=== PATIENT | male | born 1955 | race Hispanic/Latino ===

== ENCOUNTER 2018-09-21 07:42 | Day surgery (SDC) | payer OTHER ==
[~2018-09-21] VITALS: Ht 167.6 cm; Wt 83.5 kg
[~2018-09-21 07:42] MED LIST: AMIT10TA PO; LIDOCAINE 1% MDV 20ML VIAL SQ PRN; LR 1,000 ML IV ONE
[2018-09-21] MEDS ORDERED: KETOROLAC 60 MG/2 ML VIAL (J1885) As Ordered ONE (08:07)
[2018-09-21] MEDS ORDERED: dexameTHASONE 4 MG/ML 1ML VIAL (J1100) As Ordered ONE ×2 (08:07→09:26)
[2018-09-21] MEDS ORDERED: LIDOCAINE 2% INJ 100 MG/5 ML SDV (FOR ANES.) As Ordered ONE (08:07)
[2018-09-21] MEDS ORDERED: PROPOFOL 200 MG/20 ML VIAL As Ordered ONE ×2 (08:07→11:40)
[2018-09-21] MEDS ORDERED: ONDANSETRON 4MG/2ML VIAL (J2405) As Ordered ONE (08:07)
[2018-09-21] MEDS ORDERED: fentaNYL 100 MCG/2 ML INJECTION (J3010) As Ordered ONE (08:08)
[2018-09-21] MEDS ORDERED: MIDAZOLAM INJ 2 MG/2 ML VIAL (J2250) As Ordered ONE (08:09)
[2018-09-21] MEDS ORDERED: LIDOCAINE PRES-FREE 2% 10ML AMP As Ordered ONE (09:25)
[2018-09-21] MEDS ORDERED: BUPIVACAINE HCL 0.5% 30 ML VIAL As Ordered ONE (09:26)
[2018-09-21] MEDS ORDERED: NEOSPORIN GU IRRIG 20 ML VIAL As Ordered ONE (09:26)
[2018-09-21] MEDS ORDERED: BACITRACIN PWD 50,000 UNITS VIAL As Ordered ONE (09:26)
[2018-09-21] MEDS ORDERED: KETAMINE HCL 200 MG/20 ML VIAL As Ordered ONE (10:39)
[2018-09-21] MEDS ORDERED: ePHEDrine SULFATE 25 MG/5 ML(5MG/ML) SYRINGE As Ordered ONE (11:14)
--- NOTE | 2018-09-21 12:55 | REP ---
Clinical: Baseline postoperative assessment. Technique: AP, lateral, oblique views of the left foot. Findings: Surgical hardware and postoperative changes involve the first and fifth metatarsal bones as well as stabilizing wires noted through the second through fourth phalanges. Impression: Postoperative findings. Electronically Signed by Eugene Sadler MD 09/21/2018 12:47 P
[2018-09-21 13:15] VITALS: BP 182/93
--- NOTE | 2018-09-22 07:27 | RO ---
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 Tailor's bunion deformity, left foot. Hammertoe deformity digits 2, 3, 4, and 5, left foot. 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 Tailor's bunion deformity, left foot. Hammertoe deformity digits 2, 3, 4, and 5, left foot. PROCEDURE: SURGEON: Dylon Whipple DPM MOLDING CUTTER: None. ANESTHESIA: Local, monitored anesthesia care (MAC). HARDWARE UTILIZED: Arthrex 3.0 x 22 and a 2.4 x 14, and a 2.4 x 10, and three 0.045 Ness wires. HEMOSTASIS: Ankle pneumatic tourniquet at 225 mmHg for 108 minutes. IRRIGATION: Dilute bacitracin, neomycin, and polymyxin B solution. DESCRIPTION OF PROCEDURE: Description of operation: On 09/21/2018, this 63-year-old male was taken from his hospital room to the operating room and placed on the operating table in supine position. Following induction of intravenous (IV) sedation, local and regional anesthesia, the left lower extremity was prepped and draped in the usual aseptic manner. Attention was directed to the patient's 1st metatarsophalangeal joint, where there was noted to be a hallux valgus deformity, and the following procedure was performed: ADONAY BUNIONECTOMY, INTERNAL SCREW FIXATION, LEFT FOOT: Attention was directed to patient's left foot. There was noted to be a moderately severe hallux valgus deformity. At this time, a 6 cm incision was placed over the 1st metatarsophalangeal joint. The incision was deepened through subcutaneous tissues, and all coursing venous tributaries were identified, underscored, clamped, cut, ligated, and electrocoagulated as necessary. Linear capsulotomy was performed in the same plane as the original skin incision. The capsule and periosteal structures were then dissected free in one continuous layer dorsally, medially, and laterally, thus creating a capsule and periosteal type envelope. This delivered into view the hypertrophied medial eminence of eh 1st metatarsal, which was osteotomized from distal to proximal through and through. Attention was then directed into the 1st intermetatarsal space, where there was noted to be a considerable lateral position of the sesamoid. Dissection was carried down through the conjoin tendon, and the fibular sesamoid was freed from the surrounding soft tissue attachments and removed. The wound was flushed with copious amounts of dilute bacitracin, neomycin, and polymyxin B solution. Attention was directed to the medial surface of the 1st metatarsal, where a V-shaped osteotomy was performed with a long plantar and short dorsal wing. Upon creation of this osteotomy, the capital fragment was transposed 45% of the width of the shaft of the 1st metatarsal and fixated with a 3.0 x 22 mm headless compression screw. The osteotomy was noted to be stable in all three cardinal planes. The redundant cortical spike was osteotomized from dorsal to plantar through and through. Attention was directed towards closure. The capsular structures were coapted and maintained utilizing #2-0 Monocryl in a simple interrupted-type fashion. Subcutaneous tissues were coapted and maintained utilizing #4-0 Monocryl in a simple interrupted-type fashion. Skin incision was coapted and maintained utilizing #4-0 Prolene in a simple interrupted and horizontal mattress-type fashion. Attention was then directed to the lateral surface of the foot, where the following procedure was performed: TAILOR'S BUNIONECTOMY WITH LUDLOFF OSTEOTOMY AND INTERNAL SCREW FIXATION, 2.4 x 14 and 2.4 x 10, LEFT FOOT: Attention was directed to patient's left foot. There was noted to be moderately-severe tailor's bunion deformity. At this time, a 6 cm incision was placed over the lateral aspect of the 5th metatarsophalangeal joint. The incision was deepened through the subcutaneous tissues, and all coursing venous tributaries were identified, underscored, clamped, cut, ligated, and electrocoagulated as necessary. Periosteal capsular incision was then placed over the 5th metatarsophalangeal joint. The incision was deepened through the subcutaneous tissues, and all coursing venous tributaries were identified, underscored, clamped, cut, ligated, and electrocoagulated as necessary. The hypertrophied lateral eminence was then osteotomized from distal to proximal through and through and extirpated from the wound. Attention was directed to the lateral surface of the 5th metatarsal, where an oblique osteotomy was performed and ending proximal to the metatarsal head, and it was in a dorsal proximal to plantar distal orientation. First osteotomy formed. There was the proximal arm of the osteotomy, and after the proximal 40% of the osteotomy was cut, a K-wire was placed across the osteotomy and a 2.4 mm screw was placed but not fully tightened. The osteotomy was then completed distally, and the capital fragment was then swiveled and held in a straight position. An additional 2.4 x 10 mm screw was then placed across the osteotomy and a more proximal osteotomy was then closed. Intraoperative C-arm image revealed good overall position of the 1st and 5th metatarsal osteotomies. The wound was flushed with copious amounts of dilute bacitracin, neomycin, and polymyxin B solution. Attention was directed towards closure. The capsular structures were coapted and maintained utilizing #2-0 Monocryl in a simple interrupted-type fashion. Subcutaneous tissues were coapted and maintained utilizing #4-0 Monocryl in a simple interrupted-type fashion. Skin incision was coapted and maintained utilizing #4-0 Prolene in a simple interrupted and horizontal mattress-type fashion. Attention was then directed to the patient's 2nd toe, where the following procedure was performed: PROXIMAL INTERPHALANGEAL JOINT FUSION, WITH EXTERNAL WIRE FIXATION, 0.045 TIMES ONE, 2ND TOE, LEFT FOOT: Attention was directed to the patient's 2nd toe, where there was noted to be a hammertoe deformation. At this time, a 2 cm incision was placed over the proximal interphalangeal joint. The incision was deepened through subcutaneous tissues, and all coursing venous tributaries were identified, underscored, clamped, cut, ligated, and electrocoagulated as necessary. A transverse tenotomy and capsulotomy were performed at the level of proximal interphalangeal joint and the medial and lateral collateral ligaments were sharply dissected free from the head of the proximal phalanx. Utilizing a power saw, an osteotomy was performed at the anatomical neck of the proximal phalanx from dorsal to plantar, through and through, and extirpated from the wound in toto. The base of the middle phalanx was then osteotomized from dorsal to plantar, removing the articular cartilage. The wound was then flushed with copious amounts of dilute bacitracin, neomycin, and polymyxin B solution. A 0.045 K-wire was then driven through the middle and distal phalanx and retrograded into the proximal phalanx with C-arm imagery. Attention was then directed to the patient's 3rd toe, where the following procedure was performed: PROXIMAL INTERPHALANGEAL JOINT FUSION, WITH EXTERNAL WIRE FIXATION, 0.045 TIMES ONE, 3RD TOE, LEFT FOOT: Attention was directed to the patient's 3rd toe of the left foot. The procedure performed on the 2nd toe was now performed on the 3rd toe without variation or deletion, the only exception being that of anatomical location. Attention was then directed to the patient's 4th toe of the left foot, where the following procedure was performed: PROXIMAL INTERPHALANGEAL JOINT FUSION, WITH EXTERNAL WIRE FIXATION, 0.045 TIMES ONE, 4TH TOE, LEFT FOOT: Attention was directed to the patient's 4th toe of left foot. The procedure performed on the 2nd toe was now performed on the 4th toe without variation or deletion, the only exception being that of anatomical location. Attention was then directed to the patient's 5th toe. The following procedure was performed: PROXIMAL INTERPHALANGEAL ARTHROPLASTY 5TH TOE, LEFT FOOT: Attention was directed to the patient's 5th toe of left foot. The procedure performed on the 2nd toe was now performed on the 5th toe with the following variation: The articular cartilage was not removed from the middle phalanx of the 5th toe. No K-wire was used for stabilization. Following the completion of surgical procedure, 4 mg of dexamethasone sodium phosphate was instilled proximal to surgical site. Attention was directed towards bandaging, where a sterile compressive bandage was applied consisting of Adaptic, 4 x 4's, 4 x 4 splints, Salvatore, Kerlix, and a well-molded fiberglass cast was then placed on the patient's left foot and ankle with the foot at a right angle to the lower leg. When the ankle pneumonic tourniquet was deflated, there was instantaneous capillary filling time. The patient, having apparently tolerated the surgical procedure was sent from operating room (OR) to the recovery room for further monitoring by the anesthesia department. The postoperative instructions were given upon discharge. edited: 09/22/2018 0851 [email or web address] BARLOW
== END 2018-09-21 14:00 | disposition home or self-care (01) ==
LOC: M SDC 07:42
PROVIDERS: ATTEND Podiatrist
DX: M20.42 Other hammer toe(s) (acquired), left foot (principal); M21.622 Bunionette of left foot; M20.12 Hallux valgus (acquired), left foot; I10 Essential (primary) hypertension; M81.0 Age-related osteoporosis without current pathological fracture; Z79.899 Other long term (current) drug therapy
CPT/HCPCS: 28110; 28285; 28296; 73630; 76000; 88300; 97116; C1713; J0690; J1100; J1885; J2250; J2405; J3010

== ENCOUNTER 2019-02-01 06:06 | Day surgery (SDC) | payer OTHER ==
[~2019-02-01] VITALS: Ht 177.8 cm; Wt 86.3 kg
[~2019-02-01 06:06] MED LIST changes: +INDO25SU PO; +NORV2TAB PO; +ceFAZolin SOD 2 GM in IV 1 EA IV ONE
[2019-02-01] MEDS ORDERED: PROPOFOL 500 MG/50 ML VIAL As Ordered ONE (06:57)
[2019-02-01] MEDS ORDERED: LIDOCAINE 2% INJ 100 MG/5 ML SDV (FOR ANES.) As Ordered ONE (06:57)
[2019-02-01] MEDS ORDERED: ONDANSETRON 4MG/2ML VIAL (J2405) As Ordered ONE (06:58)
[2019-02-01] MEDS ORDERED: dexameTHASONE 4 MG/ML 1ML VIAL (J1100) As Ordered ONE ×2 (06:58→07:00)
[2019-02-01] MEDS ORDERED: KETOROLAC 60 MG/2 ML VIAL (J1885) As Ordered ONE (06:58)
[2019-02-01] MEDS ORDERED: ROPIvacaine 0.5% 30 ML INJECTION (J2795 PER 1MG) As Ordered ONE (06:59)
[2019-02-01] MEDS ORDERED: BACITRACIN PWD 50,000 UNITS VIAL As Ordered ONE (07:00)
[2019-02-01] MEDS ORDERED: BUPIVACAINE HCL 0.5% 30 ML VIAL As Ordered ONE (07:00)
[2019-02-01] MEDS ORDERED: LIDOCAINE 2% MDV 20 ML VIAL As Ordered ONE (07:00)
[2019-02-01] MEDS ORDERED: NEOSPORIN GU IRRIG 20 ML VIAL As Ordered ONE (07:01)
[2019-02-01] MEDS ORDERED: fentaNYL 100 MCG/2 ML INJECTION (J3010) As Ordered ONE (07:02)
[2019-02-01] MEDS ORDERED: MIDAZOLAM INJ 2 MG/2 ML VIAL (J2250) As Ordered ONE (07:02)
[2019-02-01] MEDS ORDERED: PROPOFOL 200 MG/20 ML VIAL As Ordered ONE (08:23)
[2019-02-01 09:45] VITALS: BP 168/84
--- NOTE | 2019-02-01 09:55 | REP ---
RIGHT FOOT SERIES: Three views. HISTORY: Portable exam postop. Bunionectomy. FINDINGS: Three views of the right foot are obtained through overlying cast material. There is a screw plate fixation device using the first tarsometatarsal articulation. There is a metallic screw in the distal first metatarsal post bunionectomy. There is calcification and thickening of the distal Achilles tendon and mild plantar calcaneal spurring is noted. Electronically Signed by Yeyo Awad MD 02/01/2019 01:01 P
[2019-02-01] MEDS ORDERED: ONDANSETRON 4MG/2ML VIAL (J2405) IV PRN (10:15)
[2019-02-01] MEDS ORDERED: LR 1,000 ML IV SCH (10:15)
--- NOTE | 2019-02-01 22:14 | ECGEPIP ---
[facility] Test Date: 2019-02-01 Pat Name: PAULA GARZON Department: Room: - Gender: Male Manual Lathe Machinist: ROSALINE : 1955 Requested By: Dylon Whipple Order Number: [id number] Reading MD: Juanjo Young Measurements Intervals [place] Rate: 62 P: 46 UT: 164 QRS: -9 QRSD: 106 T: -5 QT: 416 QTc: 423 Interpretive Statements SINUS RHYTHM WITH OCCASIONAL SUPRAVENTRICULAR PREMATURE COMPLEXES Baseline Noise No prior ECG available for comparison at the time of interpretation. Electronically Signed on 02-01-2019 22:14:29 EST by Juanjo Young
--- NOTE | 2019-02-04 07:40 | RO ---
DATE OF PROCEDURE: 02/01/2019 PREOPERATIVE DIAGNOSES: 1. Recurrent hallux valgus deformity right foot. 2. Retained hardware screw first metatarsal right foot. POSTOPERATIVE DIAGNOSIS: 1. Recurrent hallux valgus deformity right foot. 2. Retained hardware screw first metatarsal right foot. SURGEON: Dr. Dylon Whipple DPM GOLF COURSE PATROLLER: None. ANESTHESIA: Local MAC. IRRIGATION: Dilute Bacitracin, neomycin and polymyxin B solution. HEMOSTASIS: Ankle pneumatic tourniquet at 225 mmHg, right ankle 56 minutes. HARDWARE UTILIZED: Arthrex headless 3.0 x 18 mm compression screw. DESCRIPTION OF OPERATION: On 02/01/2019, this 63-year-old male was taken from his hospital room to the operating room and placed on the operating room table in the supine position following the induction and IV sedation. The right lower extremity was prepped and draped in the usual aseptic manner. Attention was directed to the patient's right foot. There is noted to be a hallux valgus deformity. At this time a 6 cm incision was placed over the first metatarsal phalangeal joint medial to the extensor tendon. The incision was deepened to the subcutaneous tissues and all coursing venous tributaries were identified, underscored, clamped, cut ligated, and electrocoagulated as necessary. A linear capsulotomy was performed in the same plane as the original skin incision. The capsule and periosteal structures were then dissected free in one continuous layer dorsally, medially and laterally this creating a capsule periosteal type envelope. A retained screw was noted on the distal aspect of the first metatarsal proximal to the metatarsal head. This was partially overgrown and therefore an osteotome and mallet was needed to debride the bone along the proximal margin to expose the entire head of the screw. The screw was then removed. Attention was directed to the first intermetatarsal space down to the fibular sesamoid. This was released however and was not able to slide under the head of the first metatarsal and therefore it was elected to be removed and it was removed in toto. Attention was directed to the medial surface of the first metatarsal where a V-shaped osteotomy was performed with a longer plantar and shorter dorsal wing. The osteotomy was completed and then the capital fragment was transposed approximately 40% of the width of the shaft of the first metatarsal and fixated with a 3.0 x 18 mm compression screw. The osteotomy was noted to be stable in all three cardinal planes. Redundant cortical spike was the osteotomized from dorsal to plantar through and through and extirpated from the wound. Wound was flushed with copious amounts of dilute bacitracin, neomycin and polymyxin B solution. The capsular structures were coapted and maintained using 2-0 Monocryl in a simple interrupted type fashion. Subcutaneous tissues were coapted and maintained using #4-0 Monocryl in a simple interrupted type fashion. Skin incisions coapted and maintained using #3-0 Nylon in a simple interrupted type fashion. Following the completion of surgical procedure 4 mg of dexamethasone was instilled proximally at the surgical site. Dressing was applied consistent with adaptic 4 x 4s, 4 x 4 splints, Dia Chase and a fiberglass boot cast was applied to the patient foot. The patient having apparently tolerated the surgical procedure well was taken from the operating room to the recovery room for further monitoring by the anesthesia department. All surgical specimens were sent to pathology for evaluation. Postoperative instructions given upon discharge. The patient is supposed to be nonweightbearing on his right lower extremity but may touch weightbearing on the heel to pivot and transfer. His questions were answered.
== END 2019-02-01 10:40 | disposition home or self-care (01) ==
LOC: M SDC 06:06
PROVIDERS: ATTEND Podiatrist
DX: M20.11 Hallux valgus (acquired), right foot (principal); Z47.2 Encounter for removal of internal fixation device; M79.671 Pain in right foot; I49.3 Ventricular premature depolarization; I10 Essential (primary) hypertension; K21.9 Gastro-esophageal reflux disease without esophagitis; R00.1 Bradycardia, unspecified; K59.00 Constipation, unspecified; K92.1 Melena; M19.041 Primary osteoarthritis, right hand; M19.042 Primary osteoarthritis, left hand; M19.071 Primary osteoarthritis, right ankle and foot; M19.072 Primary osteoarthritis, left ankle and foot; M51.34 Other intervertebral disc degeneration, thoracic region; M51.36 Other intervertebral disc degeneration, lumbar region; M50.30 Other cervical disc degeneration, unspecified cervical region; L40.9 Psoriasis, unspecified; G47.9 Sleep disorder, unspecified; J00 Acute nasopharyngitis [common cold]; F17.210 Nicotine dependence, cigarettes, uncomplicated; Z79.899 Other long term (current) drug therapy
CPT/HCPCS: 20680; 28296; 73630; 88300; 93005; 97116; C1713; J0690; J1100; J1885; J2250; J2405; J2795; J3010